=== PATIENT | female | born 2000 | race Caucasian/White ===

== ENCOUNTER → 2021-10-17 10:42 | Outpatient (CLI) | payer OTHER, SELFPAY ==
[2021-10-17 19:47] LABS: SARS-CoV-2 RNA PCR Positive
== END ==
DX: U07.1 COVID-19 (principal)
CPT/HCPCS: C9803; U0003; U0005

== ENCOUNTER → 2021-10-23 08:06 | Outpatient (CLI) | payer OTHER, SELFPAY ==
[2021-10-23 21:06] LABS: SARS-CoV-2 RNA PCR Positive
== END ==
DX: U07.1 COVID-19 (principal)
CPT/HCPCS: C9803; U0003; U0005